=== PATIENT | female | born 1960 | race Caucasian/White ===

== ENCOUNTER → 2017-03-01 | Outpatient (CLI) | payer OTHER ==
[~2017-03-01] MED LIST: ALBU8.5H3 INH; AMLO10TA2 PO; ATEN50TA41 PO; CELE200C PO; CHLO25TA PO; DICL100G8 TD; FURO20TA3 PO; GUAI600T53 PO; HYDR-3343 PO; INSU100V8 SQ; INSU200I SC; LEVO500T33 PO; LORA0.5T PO; LOSA100T6 PO; NICO1PAT5 TD; OXYC10TA6 PO; PRED10TA PO; PRED20TA PO; PREG75CA PO; PROM25TA10 PO; SIMV20TA3 PO; SITA100T PO; TIOT18CA INH
== END | disposition home or self-care (01) ==
LOC: CFH 13:26
PROVIDERS: ATTEND Nurse Practitioner
DX: R91.8 Other nonspecific abnormal finding of lung field (principal)
CPT/HCPCS: 71250

== ENCOUNTER 2017-03-26 12:49 | Emergency (ER) | payer OTHER ==
[~2017-03-26] VITALS: Ht 165.1 cm; Wt 147.0 kg
[~2017-03-26 12:49] MED LIST changes: -ALBU8.5H3 INH; +ALBU8.5H8 INH; +DICL100G19 TD; -DICL100G8 TD; -GUAI600T53 PO; +GUAI600T80 PO; -LEVO500T33 PO; +LEVO500T47 PO; +NICO1PAT16 TD; -NICO1PAT5 TD
[2017-03-26 12:51] VITALS: BP 185/86
[2017-03-26] MEDS ORDERED: SODIUM CHLORIDE FLUSH 10ML SYR IVF ONE (13:30)
[2017-03-26] MEDS ORDERED: HYDROmorphone 1 MG/ML, 1ML IVPush PRN (13:30)
[2017-03-26] MEDS ORDERED: SODIUM CHLORIDE 0.9% 1,000ML IVBOLUS ONE (13:30)
[2017-03-26] MEDS ORDERED: ONDANSETRON 2MG/ML, 2ML IVPush ONE (13:30)
[2017-03-26] MEDS ORDERED: ONDANSETRON 2MG/ML, 2ML ONE (13:34)
[2017-03-26] MEDS ORDERED: HYDROmorphone 1 MG/ML, 1ML ONE (13:34)
[2017-03-26 13:46] LABS: HEMATOCRIT 39.8 % (34.6-47.8); HEMOGLOBIN 13.3 g/dL (11.7-16.4); WHITE BLOOD COUNT 7.8 x10^3/uL (3.4-10)
[2017-03-26 13:55] LABS: BLOOD UREA NITROGEN 10 mg/dL (7-18)
== END 2017-03-26 15:02 | disposition home or self-care (01) ==
LOC: ED 14:56
DX: S39.012A Strain of muscle, fascia and tendon of lower back, initial encounter (principal); S70.01XA Contusion of right hip, initial encounter; M51.36 Other intervertebral disc degeneration, lumbar region; E11.9 Type 2 diabetes mellitus without complications; M79.7 Fibromyalgia; I50.9 Heart failure, unspecified; I10 Essential (primary) hypertension; E66.01 Morbid (severe) obesity due to excess calories; Z87.891 Personal history of nicotine dependence; Z88.5 Allergy status to narcotic agent; W19.XXXA Unspecified fall, initial encounter; Y93.89 Activity, other specified; Y92.89 Other specified places as the place of occurrence of the external cause; Y99.8 Other external cause status
CPT/HCPCS: 36415; 72110; 73502; 80048; 82040; 85025; 85610; 96361; 96374; 96375; 99285; J1170; J2405; J7030

== ENCOUNTER 2017-04-18 19:21 | Emergency (ER) | payer OTHER ==
[~2017-04-18] VITALS: Ht 162.6 cm; Wt 150.1 kg
[~2017-04-18 19:21] MED LIST changes: +NICO-487 TD; -NICO1PAT16 TD
[2017-04-18 19:32] VITALS: BP 167/93
[2017-04-18] MEDS ORDERED: HYDROmorphone 1 MG/ML, 1ML ONE (21:56)
[2017-04-18] MEDS ORDERED: HYDROmorphone/PF 4 MG/ML, 1ML IM ONE (22:00)
== END 2017-04-18 22:23 | disposition home or self-care (01) ==
LOC: ED 21:26
DX: B02.9 Zoster without complications (principal); M25.512 Pain in left shoulder
CPT/HCPCS: 96372; 99283; J1170

== ENCOUNTER 2017-12-05 12:54 | Emergency (ER) | payer OTHER ==
[~2017-12-05] VITALS: Ht 162.6 cm; Wt 149.6 kg
[~2017-12-05 12:54] MED LIST changes: +AMLO5TAB2 PO; +AREDS EYE VIT; +ATEN100T PO; +CARV6.2512 PO; +INSU100I13 SC; +ISOS30TA8 PO; +OMEP-110 PO; +PREG100C PO
[2017-12-05] MEDS ORDERED: HYDROcodone/APAP 5/325 TABLET PO ONE (13:30)
[2017-12-05] MEDS ORDERED: ALBUTEROL/IPRATROPIUM 2.5MG/0.5MG, 3 ML NPPB ONE (13:30)
[2017-12-05] MEDS ORDERED: HYDROcodone/APAP 5/325 TABLET ONE (13:31)
[2017-12-05] MEDS ORDERED: ALBUTEROL/IPRATROPIUM 2.5MG/0.5MG, 3 ML ONE (13:59)
[2017-12-05 15:02] VITALS: BP 142/76
== END 2017-12-05 15:06 | disposition home or self-care (01) ==
LOC: ED 15:00 → MERGE 15:10 → ED 16:01
DX: K61.0 Anal abscess (principal); J45.31 Mild persistent asthma with (acute) exacerbation; I10 Essential (primary) hypertension; E11.9 Type 2 diabetes mellitus without complications
CPT/HCPCS: 71045; 94640; 99283; J7512; J7620